=== PATIENT | female | born 1975 | race Caucasian/White ===

== ENCOUNTER → 2017-06-12 | Outpatient (CLI) | payer BC ==
--- NOTE | 2017-06-12 11:36 | WOMENS IMAGING REPORT ---
EXAM DESCRIPTION: BILAT SCREENING MAMMO W/CAD COMPLETED DATE/TIME: 06/12/2017 9:25 am REASON FOR STUDY: SCREENING MAMMO Z12.31 ENCNTR SCREEN MAMMOGRAM FOR MALIGNANT NEOPLASM OF [place] COMPARISON: None. TECHNIQUE: Standard craniocaudal and mediolateral oblique views of each breast recorded using digita l acquisition. LIMITATIONS: None. FINDINGS: No masses, calcifications or architectural distortion. No areas of suspicion. Read with the assistance of CAD. .[facility] - R2 Cenova Version 1.3 .[facility] - R2 Cenova Version 1.3 .[facility] - R2 Cenova Version 2.4 .[facility] - R2 Cenova Version 2.4 .[facility] - R2 [employer] Version 9.2 IMPRESSION: NORMAL MAMMOGRAM. BIRADS 1. BREAST DENSITY: b. There are scattered areas of fibroglandular density. BIRAD: 1 NEGATIVE RECOMMENDATION: ROUTINE SCREENING COMMENT: The patient has been notified of the results by letter per SA requirements. Additional no tification policies are in place for contacting patient with suspicious or incomplete findings. Quality ID #225: The [employer] recommends an annual screening mammogram for women aged 40 years or over. This facility utilizes a reminder system to ensure that all patients receive reminder letters, and/or direct phone calls for appointments. This includes reminders for routine scr eening mammograms, diagnostic mammograms, or other Breast Imaging Interventions when appropriate. Th is patient will be placed in the appropriate reminder system. The [employer] (ACR) has developed recommendations for screening MRI of the breast s in certain patient populations, to be used in conjunction with mammography. Breast MRI surveillanc e may be appropriate for women with more than 20% lifetime risk of developing breast cancer as deter mined by genetic testing, significant family history of the disease, or history of mantle radiation f or Hodgkins Disease. ACR Practice Guidelines 2008. TECHNICAL DOCUMENTATION: FINDING NUMBER: (1) ASSESSMENT: (1) JOB ID: [id number] [employer]- All Rights Reserved
== END ==
LOC: WI 09:03
PROVIDERS: ATTEND Nurse Practitioner Family
DX: Z12.31 Encounter for screening mammogram for malignant neoplasm of breast (principal)
CPT/HCPCS: 77067

== ENCOUNTER → 2017-06-12 | Outpatient (CLI) | payer BC ==
[2017-06-12 09:54] LABS: ABSOLUTE BASOPHILS # (AUTO) 0.2 10^3/uL (0.0-0.2); ABSOLUTE EOSINOPHILS # (AUTO) 0.4 10^3/uL (0.0-0.6); ABSOLUTE LYMPHOCYTES (AUTO) 2.4 10^3/uL (0.5-4.7); ABSOLUTE MONOCYTES (AUTO) 0.6 10^3/uL (0.1-1.4); ABSOLUTE NEUT (AUTO) 4.2 10^3/uL (1.7-8.2); EOSINOPHILS % (AUTO) 4.7 % (0-6); HEMATOCRIT 40.3 % (36.0-47.0); HEMOGLOBIN 13.5 g/dL (12.0-15.5); LYMPHOCYTES % (AUTO) 30.7 % (13-45); MEAN CORPUSCULAR HEMOGLOBIN 26.7 pg (27.0-33.4); MEAN CORPUSCULAR HGB CONC 33.4 g/dL (32.0-36.0); MEAN CORPUSCULAR VOLUME 80 fl (80-97); PLATELET COUNT 241 10^3/uL (150-450); RED BLOOD COUNT 5.04 10^6/uL (3.72-5.28); RED CELL DISTRIBUTION WIDTH 15.2 % (11.5-14.0); SEGMENTED NEUTROPHILS % (AUTO) 54.6 % (42-78); TOTAL CELLS COUNTED % (AUTO) 100 %; WHITE BLOOD COUNT 7.8 10^3/uL (4.0-10.5)
[2017-06-12 10:09] LABS: ALANINE AMINOTRANSFERASE 33 U/L (9-52); ALBUMIN 4.8 g/dL (3.5-5.0); ALKALINE PHOSPHATASE 43 U/L (38-126); ANION GAP 9 (5-19); ASPARTATE AMINO TRANSFERASE 28 U/L (14-36); BILIRUBIN,DIRECT 0.1 mg/dL (0.0-0.4); BILIRUBIN,TOTAL 0.5 mg/dL (0.2-1.3); BLOOD UREA NITROGEN 14 mg/dL (7-20); CALCIUM 9.9 mg/dL (8.4-10.2); CARBON DIOXIDE 29 mmol/L (22-30); CHLORIDE 104 mmol/L (98-107); GLUCOSE 90 mg/dL (75-110); POTASSIUM 4.1 mmol/L (3.6-5.0); SODIUM 142.3 mmol/L (137-145)
[2017-06-12 10:26] LABS: FREE T4 (FREE THYROXINE) 0.91 ng/dL (0.78-2.19)
[2017-06-13 07:16] LABS: TRIIODOTHYRONINE (T3) 55 ng/dL (71-180)
[2017-06-14 16:06] LABS: VITAMIN D 1,25 DIHYDROXY 36.2 pg/mL (19.9-79.3)
== END ==
LOC: LAB 09:24
PROVIDERS: ATTEND Nurse Practitioner Family
DX: D64.9 Anemia, unspecified (principal); E03.9 Hypothyroidism, unspecified; Z68.33 Body mass index [BMI] 33.0-33.9, adult
CPT/HCPCS: 36415; 80053; 82607; 82652; 82728; 82746; 84439; 84443; 84480; 85025

== ENCOUNTER → 2017-08-14 | Outpatient (CLI) | payer BC ==
[2017-08-14 15:47] LABS: FREE T4 (FREE THYROXINE) 0.78 ng/dL (0.78-2.19)
[2017-08-14 16:01] LABS: THYROID STIMULATING HORMONE 74.9 uIU/mL (0.47-4.68)
[2017-08-15 09:30] LABS: TRIIODOTHYRONINE (T3) 63 ng/dL (71-180)
== END ==
LOC: LAB 14:46
PROVIDERS: ATTEND Nurse Practitioner Family
DX: E03.9 Hypothyroidism, unspecified (principal)
CPT/HCPCS: 36415; 84439; 84443; 84480

== ENCOUNTER → 2019-02-12 | Outpatient (CLI) | payer BC ==
--- NOTE | 2019-02-12 16:10 | WOMENS IMAGING REPORT ---
EXAM DESCRIPTION: BILAT SCREENING MAMMO W/CAD COMPLETED DATE/TIME: 02/12/2019 9:07 am REASON FOR STUDY: Z12.31 SCREENING MAMMO Z12.31 ENCNTR SCREEN MAMMOGRAM FOR MALIGNANT NEOPLASM OF B RE COMPARISON: 2017 EXAM PARAMETERS: Standard craniocaudal and mediolateral oblique views of each breast recorded using digital acquisition. Read with the assistance of CAD. .[facility] - [place] Artist [employer]pect Version 9.2 LIMITATIONS: None. FINDINGS: No suspicious masses, suspicious calcifications or architectural distortion. No areas of c oncern. IMPRESSION: Negative MAMMOGRAM. BIRADS 1 BREAST DENSITY: c. The breasts are heterogeneously dense, which may obscure small masses. BIRAD: ASSESSMENT: 1 NEGATIVE RECOMMENDATION: ROUTINE SCREENING Please continue yearly bilateral screening mammography/tomosynthesis in February 2020 COMMENT: The patient has been notified of the results by letter per SA requirements. Additional no tification policies are in place for contacting patient with suspicious or incomplete findings. Quality ID #[id number]: The [employer] recommends an annual screening mammogram for women aged 40 years or over. This facility utilizes a reminder system to ensure that all patients receive reminder letters, and/or direct phone calls for appointments. This includes reminders for routine scr eening mammograms, diagnostic mammograms, or other Breast Imaging Interventions when appropriate. Th is patient will be placed in the appropriate reminder system. TECHNICAL DOCUMENTATION: FINDING NUMBER: (1) ASSESSMENT: (1) JOB ID: [id number] [employer]- All Rights Reserved Reading location - IP/workstation name: [email or web address]
== END ==
LOC: WI 08:00
PROVIDERS: ATTEND Nurse Practitioner Family
DX: Z12.31 Encounter for screening mammogram for malignant neoplasm of breast (principal)
CPT/HCPCS: 77067

== ENCOUNTER 2019-05-29 06:39 | Inpatient (IN) | payer BC ==
[2019-05-21 10:59] LABS: HEMATOCRIT 36.1 % (36.0-47.0); HEMOGLOBIN 12.1 g/dL (12.0-15.5); MEAN CORPUSCULAR HEMOGLOBIN 23.7 pg (27.0-33.4); MEAN CORPUSCULAR HGB CONC 33.5 g/dL (32.0-36.0); MEAN CORPUSCULAR VOLUME 71 fl (80-97); PLATELET COUNT 230 10^3/uL (150-450); RED CELL DISTRIBUTION WIDTH 17.3 % (11.5-14.0); WHITE BLOOD COUNT 7.2 10^3/uL (4.0-10.5)
[2019-05-21 11:22] LABS: APPEARANCE,URINE CLEAR; BILIRUBIN,URINE NEGATIVE (NEGATIVE); COLOR,URINE YELLOW; GLUCOSE, URINE NEGATIVE (NEGATIVE); KETONES,URINE NEGATIVE (NEGATIVE); LEUKOCYTE ESTERASE,URINE NEGATIVE (NEGATIVE); NITRITE,URINE NEGATIVE (NEGATIVE); PROTEIN,URINE NEGATIVE (NEGATIVE); URINE SPECIFIC GRAVITY 1.014; UROBILINOGEN,URINE NEGATIVE mg/dL (<2.0)
[2019-05-21 11:25] LABS: ALBUMIN 4.7 g/dL (3.5-5.0); ALKALINE PHOSPHATASE 61 U/L (38-126); ANION GAP 13 (5-19); ASPARTATE AMINO TRANSFERASE 26 U/L (14-36); BILIRUBIN,DIRECT 0.3 mg/dL (0.0-0.4); BILIRUBIN,TOTAL 0.5 mg/dL (0.2-1.3); BLOOD UREA NITROGEN 14 mg/dL (7-20); CALCIUM 9.6 mg/dL (8.4-10.2); CARBON DIOXIDE 24 mmol/L (22-30); CHLORIDE 105 mmol/L (98-107); GLUCOSE 85 mg/dL (75-110); POTASSIUM 3.8 mmol/L (3.6-5.0); TOTAL PROTEIN 8.3 g/dL (6.3-8.2)
[~2019-05-29 06:39] MED LIST: CEFAZOLIN SODIUM 2 GM in DEXTROSE 5%-WATER 100 ML IV PRN; LACTATED RINGERS 1000 ML IV PRN; LIDOCAINE 0.5% INJ-PF (5 MG/ML) 50 ML SDV SUBCUT PRN
[2019-05-29] MEDS ORDERED: BUPIVACAINE HCL 0.25 % INJ/PF (2.5 MG/1 ML) 30 ML VIAL ONE (08:24)
[2019-05-29] MEDS ORDERED: PROPOFOL INJ 200 MG/20 ML VIAL IV ONE (08:27)
[2019-05-29] MEDS ORDERED: MIDAZOLAM 2 MG/2 ML INJ ONE (08:27)
[2019-05-29] MEDS ORDERED: HYDROMORPHONE HCL INJ/PF 2 MG/ML AMPULE ONE (08:27)
[2019-05-29] MEDS ORDERED: DIPHENHYDRAMINE HCL 50 MG/ML VIAL IV PRN (09:27)
[2019-05-29] MEDS ORDERED: ONDANSETRON HCL INJ/PF 4 MG/2 ML SDV IV PRN (09:27)
[2019-05-29] MEDS ORDERED: FENTANYL CITRATE INJ/PF 100 MCG/2 ML AMPUL IV PRN ×2 (09:27)
[2019-05-29] MEDS ORDERED: PROMETHAZINE HCL INJ 25 MG/1 ML VIAL IV PRN ×3 (09:27→14:48)
[2019-05-29] MEDS ORDERED: MEPERIDINE HCL/PF INJ 25 MG/1 ML DISP.SYRIN IV PRN (09:27)
[2019-05-29] MEDS ORDERED: OXYCODONE-ACETAMINOPHEN 5-325 MG TABLET PO PRN ×2 (09:27)
[2019-05-29] MEDS ORDERED: BUPIVACAINE HCL 0.25 % INJ/PF (2.5 MG/1 ML) 30 ML VIAL INJ ONE (09:38)
--- NOTE | 2019-05-29 12:03 | Operative Report ---
Operative Report DATE OF SURGERY: 05/29/19 PREOPERATIVE DIAGNOSIS: Pelvic mass right adnexal mass POSTOPERATIVE DIAGNOSIS: Bilateral endometriomas adhesions and pelvic pain OPERATION: Laparoscopy with conversion to open laparotomy total hysterectomy and BSO SURGEON: DAV VARGAS [employer] ATTENDANT: OSVALDO FRANCO ANESTHESIA: GA TISSUE REMOVED OR ALTERED: Uterus tubes and ovaries ESTIMATED BLOOD LOSS: Approximately 400 cc INTRAOPERATIVE FINDINGS: Bilateral endometriomas with extensive pelvic adhesions PROCEDURE: Patient placed in a dorsal lithotomy tissue prepped dural sterile fashion. Speculum placed cervix visualized grasped with single-tooth tenaculum Hulka tenaculum was placed single-tooth tenaculum was removed. Then turned to the abdomen where a subumbilical incision was made trocar was introduced with insufflation of the abdomen and puncture was made lateral to the first on the le ft and a 5 trocar was introduced and a suprapubic incision and a 1012 trocar was placed. The harmonic scalpel the right infundibulopelvic then divided and divided this was continued down to where adhesions were encountered from the ovary to the right adnexal wall. On the left and the tube was severed from the mesosalpinx using harmonic scalpel. At that point it was determined that the ovary was adhered to read here to the posterior aspect of the uterus and if the uterus or to be removed ovary would also have to be removed secondary to the adhesions and endometrioma. Cul-de-sac did not appear to be obliterated and bowel was within millimeters of the posterior aspect of the uterus and it was noted intraoperatively to convert to open laparotomy. Pfannenstiel incision was made extending through the subcutaneous tissue with sharp dissection fascia divided rectus muscle bluntly sharp divided prior to the peritoneum was entered with sharp dissection. Bowel was packed with with saline packs there was adhesions of the bowel to the left adnexa wall. The O'Bradley-O'Hinkle retractor was placed. The uterus was grasped with a thyroid clamp and on the left a straight clamp was applied to the broad ligament and divided this continued down both sides of the uterus. Bladder flap was created with blunt sharp dissection. Was then crossclamped and the uterus was removed. Left ovary was then carefully dissected and the remaining tissue that was adherent was divided and that ovary was removed. On the right the remaining ovary was removed by sharply dissecting the adhesions surrounding it until it could be safely removed. FloSeal was then placed over the raw areas covered over with Gelfoam and then Surgicel and Interceed. Stasis was noted. The retractor was removed and the wet saline packs were removed. The incision closed with 0 Vicryl for the fascia the subcu tissue was closed interrupted 2-0 Vicryl and the skin was closed with insorb.. Previously made subumbilical incision was closed with 0 Vicryl for the fascia 4 oh subcu the puncture wound left was closed with subcu 040. The patient's urine remained clear after procedure she was taken recovery room in good condition
[2019-05-29] MEDS ORDERED: PROMETHAZINE HCL INJ 25 MG/1 ML VIAL ONE (12:16)
[2019-05-29] MEDS ORDERED: FENTANYL CITRATE INJ/PF 100 MCG/2 ML AMPUL ONE (12:17)
[2019-05-29] MEDS: FENTANYL CITRATE INJ/PF 100 MCG/2 ML AMPUL IV PRN ×2 (12:17→12:27)
[2019-05-29] MEDS ORDERED: DEXTROSE 5%-LACTATED RINGERS 1,000 ML IV PRN (13:07)
[2019-05-29] MEDS ORDERED: MORPHINE SULFATE 10 MG/ML INJ IV PRN (13:08)
[2019-05-29] MEDS: OXYCODONE-ACETAMINOPHEN 5-325 MG TABLET PO PRN ×2 (14:14→20:25)
[2019-05-29] MEDS ORDERED: ONDANSETRON HCL INJ/PF 4 MG/2 ML SDV ONE (14:16)
[2019-05-29] MEDS ORDERED: KETOROLAC TROMETHAMINE 60 MG/2 ML SDV ONE (14:16)
[2019-05-29] MEDS ORDERED: METOCLOPRAMIDE HCL INJ/PF 10 MG/2 ML SDV ONE (14:16)
[2019-05-29] MEDS ORDERED: GLYCOPYRROLATE 1 MG/5 ML VIAL ONE (14:16)
[2019-05-29] MEDS ORDERED: ROCURONIUM BROMIDE INJ 50 MG/5 ML VIAL IV ONE (14:16)
[2019-05-29] MEDS ORDERED: NEOSTIGMINE METHYLSULFATE 10 MG/10 ML VIAL ONE (14:16)
[2019-05-29] MEDS ORDERED: DEXAMETHASONE SOD PHOSPHATE INJ 4 MG/1 ML VIAL ONE (14:16)
[2019-05-29] MEDS ORDERED: LIDOCAINE 2% INJ-PF (20 MG/ML) 2 ML AMPUL ONE (14:16)
[2019-05-29] MEDS: IBUPROFEN 800 MG TABLET PO SCH ×2 (14:19→23:21)
[2019-05-29] MEDS ORDERED: MORPHINE SULFATE 10 MG/ML INJ IM PRN (22:15)
[2019-05-30 05:14] LABS: HEMOGLOBIN 8.3 g/dL (12.0-15.5); MEAN CORPUSCULAR HEMOGLOBIN 23.7 pg (27.0-33.4); MEAN CORPUSCULAR HGB CONC 33.2 g/dL (32.0-36.0); MEAN CORPUSCULAR VOLUME 72 fl (80-97); PLATELET COUNT 225 10^3/uL (150-450); RED CELL DISTRIBUTION WIDTH 17.2 % (11.5-14.0); WHITE BLOOD COUNT 11.6 10^3/uL (4.0-10.5)
[2019-05-30] MEDS: IBUPROFEN 800 MG TABLET PO SCH ×3 (05:19→23:14)
--- NOTE | 2019-05-30 07:19 | PDOC PROGRESS REPORT ---
Subjective Progress Note for:: 05/30/19 Subjective:: pt having some right sided pain Reason For Visit: N94.10 UNSPECIFIED DYSPAREUNIA Physical Exam - Physical Exam Vital Signs: Temp Pulse Resp BP Pulse Ox 98.5 F 88 18 128/63 H 96 05/30/19 03:29 05/30/19 04:20 05/30/19 03:29 05/30/19 03:29 05/30/19 04:20 Intake & Output 05/29/19 05/30/19 05/31/19 06:59 06:59 06:59 Intake Total 0 1900 Output Total 1720 Balance 0 180 Weight 91.17 kg 91 kg General appearance: PRESENT: no acute distress Respiratory exam: PRESENT: clear to auscultation dee Cardiovascular exam: PRESENT: RRR GI/Abdominal exam: PRESENT: other - insicion clean Result Laboratory Results: 05/30/19 04:52 05/21/19 10:33 05/30/19 04:52 WBC 11.6 H RBC 3.50 L Hgb 8.3 L Hct 25.0 L MCV 72 L MCH 23.7 L MCHC 33.2 RDW 17.2 H Plt Count 225 Assessment & Plan - Diagnosis (2) Endometrioma of ovary Is this a current diagnosis for this admission?: Yes - Time Time Spent with patient: Less than 15 minutes Medications reviewed and adjusted accordingly: Yes Anticipated discharge: Home Within: within 24 hours - Plan Summary Plan Summary: routine post op care
[2019-05-30] MEDS: ESTROGENS,CONJUGATED 1.25 MG TABLET PO SCH (09:04)
[2019-05-30] MEDS ORDERED: HYDROMORPHONE HCL 2 MG TABLET ONE (09:15)
[2019-05-30] MEDS: HYDROMORPHONE HCL 2 MG TABLET PO PRN ×3 (09:24→23:14)
[2019-05-30] MEDS ORDERED: SIMETHICONE 80 MG TAB.CHEW PO PRN (20:28)
[2019-05-31] MEDS: IBUPROFEN 800 MG TABLET PO SCH (05:58)
[2019-05-31] MEDS: HYDROMORPHONE HCL 2 MG TABLET PO PRN (05:58)
[2019-05-31 08:26] VITALS: BP 130/56
--- NOTE | 2019-05-31 08:55 | Discharge Summary ---
Discharge Summary (SDC) - Discharge Final Diagnosis: pelvic pain bilateral endometrioma Date of Surgery: 05/29/19 Condition: Good Treatment or Instructions: post ANTHONY BS&O Referrals: SHANELLE ENGLISH FNP-C [Primary Care Provider] - Respiratory Treatments at Home: Deep Breathing/Coughing Discharge Activity: Activity As Tolerated, Balance Activity w/Rest, No Lifting/P ush/Pulling, Pelvic Rest, Slowly Increase Activity, No tub bath, Walk Frequently Home Care Assistance: None Needed Report the Following to Your Physician Immediately: Shortness of Breath, Increase in Pain, Fever over 101 Degrees, Unusual Bleeding, Redness, Swelling, Warmth, Increased Soreness, Drainage-Foul Smelling, IV Site Infection Signs, Urinary Infection Signs
[2019-05-31] MEDS: ESTROGENS,CONJUGATED 1.25 MG TABLET PO SCH (09:43)
== END 2019-05-31 10:07 | disposition home or self-care (01) | DRG 743 ==
LOC: OROUT 06:39 → 2N 12:32 → OROUT 14:11 → 2N 14:11
PROVIDERS: ADMIT Obstetrics & Gynecology Gynecology; ATTEND Obstetrics & Gynecology Gynecology
PROC: 0UT70ZZ Resection of Bilateral Fallopian Tubes, Open Approach (ICD-10-PCS; 2019-05-29)
PROC: 0UPDXHZ Removal of Contraceptive Device from Uterus and Cervix, External Approach (ICD-10-PCS; 2019-05-29)
PROC: 0UT90ZZ Resection of Uterus, Open Approach (ICD-10-PCS; principal; 2019-05-29 08:45)
PROC: 0UT20ZZ Resection of Bilateral Ovaries, Open Approach (ICD-10-PCS; 2019-05-29 08:45)
DX: N94.10 Unspecified dyspareunia (principal); N80.1 Endometriosis of ovary; N73.6 Female pelvic peritoneal adhesions (postinfective); F17.200 Nicotine dependence, unspecified, uncomplicated; E03.9 Hypothyroidism, unspecified; Z82.49 Family history of ischemic heart disease and other diseases of the circulatory system; Z79.899 Other long term (current) drug therapy; Z88.0 Allergy status to penicillin; Z53.31 Laparoscopic surgical procedure converted to open procedure; Z83.3 Family history of diabetes mellitus; Z91.013 Allergy to seafood
CPT/HCPCS: 36415; 80053; 81001; 81025; 840; 85027; 88307; 94799; J0690; J1100; J1170; J1885; J2250; J2270; J2405; J2550; J2704; J2710; J2765; J3010; J3490; J7060; J7120

== ENCOUNTER 2019-06-03 19:06 | Emergency (ER) | payer BC ==
--- NOTE | 2019-06-03 19:57 | ER Document Report ---
ED Medical Screen (RME) - General Chief Complaint: Nausea/Vomiting Stated Complaint: BODY PAIN,NAUSEA,VOMITING Time Seen by Provider: 06/03/19 19:51 Primary Care Provider: SHANELLE ENGLISH FNP-C [Primary Care Provider] - Follow up as needed Mode of Arrival: Wheelchair Information source: Patient Notes: 44-year-old female presented to ED for complaint of pain all over. She had a hysterectomy Monday and today when she had a bowel movement a small place on her incision opened up and it has been bleeding since then. Patient denies any fevers. She is hurting all over. She states she has been walking and moving around as she has been told to. She states she took Dilaudid 2 milligrams at 3:30 AM and at noon she took Motrin. She states that the Dilaudid had her so constipated that she does not ever want to take that again. She states the body aches have been since her surgery 29 May. The leg pain got worse yesterday and the upper body got worse today. Patient is alert oriented respirations regular nonlabored speaking in full sentences. She states Dr. Lawson did her surgery. I have greeted and performed a rapid initial assessment of this patient. A comprehensive ED assessment and evaluation of the patient, analysis of test results and completion of medical decision making process will be conducted by an additional ED providers. TRAVEL OUTSIDE OF THE [place] IN LAST 30 DAYS: No - Related Data Allergies/Adverse Reactions: Shellfish * [Shellfish] Allergy (Verified 05/29/19 07:14) Anaphylactoid, swelling, emesis Penicillins Adverse Reaction (Intermediate, Verified 05/29/19 07:14) vomiting, rash Past Medical History - Past Medical History Cardiac Medical History: Denies: Hx Coronary Artery Disease, Hx Heart Attack, Hx Hypertension Pulmonary Medical History: Reports: Hx Asthma, Hx Bronchitis Denies: Hx COPD, Hx Pneumonia Neurological Medical History: Denies: Hx Cerebrovascular Accident, Hx Seizures Musculoskeltal Medical History: Denies Hx Arthritis Past Surgical History: Reports: Hx Thyroid Surgery - 04 removal - Immunizations Hx Diphtheria, Pertussis, Tetanus Vaccination: - Unsure Physical Exam - Vital signs Vitals: Temp Pulse Resp BP Pulse Ox 98.7 F 84 20 125/57 L 100 06/03/19 19:39 06/03/19 19:39 06/03/19 19:39 06/03/19 19:39 06/03/19 19:39 Course - Vital Signs Vital signs: Temp Pulse Resp BP Pulse Ox 98.7 F 84 20 125/57 L 100 06/03/19 19:39 06/03/19 19:39 06/03/19 19:39 06/03/19 19:39 06/03/19 19:39 Doctor's Discharge - Discharge Referrals: SHANELLE ENGLISH, ATTRACTION WORKER-C [Primary Care Provider] - Follow up as needed
[2019-06-03] MEDS ORDERED: HYDROCODONE/ACETAMINOPHEN 5-325 MG TABLET PO ONE (19:58)
[2019-06-03 20:23] LABS: ABSOLUTE BASOPHILS # (AUTO) 0.1 10^3/uL (0.0-0.2); ABSOLUTE EOSINOPHILS # (AUTO) 0.2 10^3/uL (0.0-0.6); ABSOLUTE LYMPHOCYTES (AUTO) 2.4 10^3/uL (0.5-4.7); ABSOLUTE MONOCYTES (AUTO) 1.1 10^3/uL (0.1-1.4); ABSOLUTE NEUT (AUTO) 6.5 10^3/uL (1.7-8.2); BASOPHILS % (AUTO) 0.6 % (0-2); EOSINOPHILS % (AUTO) 2.1 % (0-6); HEMATOCRIT 23.6 % (36.0-47.0); LYMPHOCYTES % (AUTO) 22.9 % (13-45); MEAN CORPUSCULAR VOLUME 71 fl (80-97); MONOCYTES % (AUTO) 10.9 % (3-13); PLATELET COUNT 282 10^3/uL (150-450); RED BLOOD COUNT 3.35 10^6/uL (3.72-5.28); RED CELL DISTRIBUTION WIDTH 17.1 % (11.5-14.0); SEGMENTED NEUTROPHILS % (AUTO) 63.5 % (42-78); TOTAL CELLS COUNTED % (AUTO) 100 %; WHITE BLOOD COUNT 10.3 10^3/uL (4.0-10.5)
[2019-06-03 20:29] LABS: APPEARANCE,URINE CLEAR; BILIRUBIN,URINE NEGATIVE (NEGATIVE); COLOR,URINE YELLOW; GLUCOSE, URINE NEGATIVE (NEGATIVE); KETONES,URINE NEGATIVE (NEGATIVE); PROTEIN,URINE NEGATIVE (NEGATIVE); UROBILINOGEN,URINE NEGATIVE mg/dL (<2.0)
[2019-06-03 20:38] LABS: ALBUMIN 4.2 g/dL (3.5-5.0); ALKALINE PHOSPHATASE 63 U/L (38-126); ANION GAP 12 (5-19); ASPARTATE AMINO TRANSFERASE 25 U/L (14-36); BILIRUBIN,DIRECT 0.2 mg/dL (0.0-0.4); BILIRUBIN,TOTAL 0.8 mg/dL (0.2-1.3); BLOOD UREA NITROGEN 14 mg/dL (7-20); CALCIUM 9.5 mg/dL (8.4-10.2); CARBON DIOXIDE 24 mmol/L (22-30); CHLORIDE 101 mmol/L (98-107); GLUCOSE 105 mg/dL (75-110); POTASSIUM 3.6 mmol/L (3.6-5.0); TOTAL PROTEIN 7.5 g/dL (6.3-8.2)
[2019-06-03] MEDS ORDERED: HYDROMORPHONE HCL INJ/PF 2 MG/ML AMPULE IM ONE (22:24)
[2019-06-03] MEDS ORDERED: ONDANSETRON 4 MG TAB.RAPDIS PO ONE (22:26)
--- NOTE | 2019-06-03 22:26 | ER Document Report ---
ED General - General Chief Complaint: Pain All Over Stated Complaint: BODY PAIN,NAUSEA,VOMITING Time Seen by Provider: 06/03/19 19:51 Primary Care Provider: DAV LAWSON MD [ACTIVE STAFF] - Follow up tomorrow Mode of Arrival: Wheelchair Notes: Patient is a 44-year-old female that comes emergency department for chief complaint of bleeding from her postop wound. She had total hysterectomy pe rformed by Dr. Lawson on 05/29/2019, she states this was started as laparoscopic but converted to an open procedure. She states that she was discharged Monday, she has been doing well except that when she takes her pain medication she becomes extremely constipated, however when she does not take her pain medication she hurts everywhere. She states she had been taking stool softeners, finally had a very large bowel movement with a lot of straining and afterwards in the afternoon she noted she was bleeding from her wound site in her lower abdomen. She states this was bleeding heavily, blood through her close and through a towel, she states she called [facility] and they told her to come in to be evaluated. She states the bleeding stopped after she got on the bed in the room. She is not on any blood thinners. She was prescribed Dilaudid 2 mg and ibuprofen in addition to the stool softeners, denies other medications at this time. TRAVEL OUTSIDE OF THE [place] IN LAST 30 DAYS: No - Related Data Allergies/Adverse Reactions: Shellfish * [Shellfish] Allergy (Verified 05/29/19 07:14) Anaphylactoid, swelling, emesis Penicillins Adverse Reaction (Intermediate, Verified 05/29/19 07:14) vomiting, rash Home Medications: Synthroid. Zoloft Past Medical History - General Information source: Patient - Social History Smoking Status: Never Smoker Frequency of alcohol use: None Drug Abuse: None Lives with: Family Family History: Reviewed & Not Pertinent Patient has suicidal ideation: No Patient has homicidal ideation: No - Past Medical History Cardiac Medical History: Denies: Hx Coronary Artery Disease, Hx Heart Attack, Hx Hypertension Pulmonary Medical History: Reports: Hx Asthma, Hx Bronchitis Denies: Hx COPD, Hx Pneumonia Neurological Medical History: Denies: Hx Cerebrovascular Accident, Hx Seizures Musculoskeletal Medical History: Denies Hx Arthritis Past Surgical History: Reports: Hx Thyroid Surgery - 04 removal - Immunizations Immunizations up to date: Yes Hx Diphtheria, Pertussis, Tetanus Vaccination: Yes - Unsure Hx Pneumococcal Vaccination: 05/15/05 Review of Systems - Review of Systems Constitutional: See HPI EENT: No symptoms reported Cardiovascular: No symptoms reported Respiratory: No symptoms reported Gastrointestinal: See HPI Genitourinary: No symptoms reported Female Genitourinary: See HPI Musculoskeletal: No symptoms reported Skin: See HPI Hematologic/Lymphatic: No symptoms reported Neurological/Psychological: No symptoms reported Physical Exam - Vital signs Vitals: Temp Pulse Resp BP Pulse Ox 98.7 F 84 20 125/57 L 100 06/03/19 19:39 06/03/19 19:39 06/03/19 19:39 06/03/19 19:39 06/03/19 19:39 - Notes Notes: GENERAL: Alert, interacts well. No acute distress. HEAD: Normocephalic, atraumatic. EYES: Pupils equal, round, and reactive to light. Extraocular movements intact. ENT: Oral mucosa moist, tongue midline. Oropharynx unremarkable. Airway patent. LUNGS: Clear to auscultation bilaterally, no wheezes, rales, or rhonchi. No respiratory distress. HEART: Regular rate and rhythm. No murmur ABDOMEN: Postsurgical wounds over the left mid and mid upper abdomen without signs of infection. There is a large scar across the lower abdomen horizontally with some ecchymosis surrounding this. Just to the right of the midline at the scar there is a 1.5 cm area that has opened superficially and occasionally loses blood. There is no purulent drainage, no foul smell, no surrounding erythema, no concerning tenderness over the abdomen. GENITOURINARY: Deferred EXTREMITIES: Moves all 4 extremities spontaneously. No edema, normal radial and dorsalis pedis pulses bilaterally. No cyanosis. BACK: no cervical, thoracic, lumbar midline tenderness. No saddle anesthesia, normal distal neurovascular exam. Moves all extremities in full range of motion. NEUROLOGICAL: Alert and oriented x3. Normal speech. Cranial nerves II through XII grossly intact. PSYCH: Normal affect, normal mood. SKIN: Warm, dry, normal turgor. No rashes or lesions noted. Course - Re-evaluation Re-evalutation: The area that was previously bleeding over the right abdomen is still able to be opened by pulling apart the skin, there is minimal bleeding when I do this, this is very superficial, not even into the dermis. There is no dehiscence, no erythema, no purulent drainage, no notable tenderness to the area. Patient is actually very well-appearing, her vital signs are unremarkable, CBC shows anemia but this is not significantly changed from prior, no leukocytosis. Chemistry and remaining work-up unremarkable. Abdomen has some mild generalized tenderness but patient is only complaining of generalized pain over the body. She has not had any vomiting or fever. Very low suspicion of postoperative complication in the abdomen based on this, I did discuss with patient and she states she is just hoping for some way to be treated for her general pain and to help get the wound closed. She was given 1 mg of Dilaudid. 06/03/19 22:30 I called spoke with Dr. Zaldivar. Discussed patient details, history, laboratory work-up, and evaluation. Because the area is so superficial and is aligned without concerning dehiscence she recommends dressing or Dermabond over the area and for her to be rechecked by Dr. Lawson in the office in the morning. There are no other recommendations at this time. I discussed this at length with patient and I recommended she take half to quarter of her Dilaudid dose along with her stool softeners to avoid constipation but still have some pain control. She states that she cannot take Percocet because she becomes too itchy with this and she did not have good relief with the dose of hydrocodone from triage. She is very agreeable with this. Patient without any complaints and stable at time of discharge with plan to follow-up tomorrow. - Vital Signs Vital signs: Temp Pulse Resp BP Pulse Ox 99.0 F 77 18 115/52 L 97 06/04/19 00:21 06/04/19 00:21 06/04/19 00:21 06/04/19 00:21 06/04/19 00:21 - Laboratory Result Diagrams: 06/03/19 20:00 06/03/19 20:00 Laboratory results interpreted by me: 06/03/19 06/03/19 06/03/19 20:00 20:00 20:00 RBC 3.35 L Hgb 8.0 L Hct 23.6 L MCV 71 L MCH 24.0 L RDW 17.1 H Est GFR (MDRD) Non-Af 55 L Leukocyte Esterase Rfl TRACE H Procedures - Laceration/Wound Repair Right lower abdominal Wound length (cm): 1.5 Wound's Depth, Shape: Linear Laceration pre-procedure: Sterile PPE donned, Sterile drapes applied, Shur-Clens applied Wound explored: Clean, No foreign body removed Wound Repaired With: Dermabond Post-procedure NV exam normal: Yes Complications: No Discharge - Discharge Clinical Impression: Bleeding from wound, Post-op pain Condition: Stable Disposition: HOME, SELF-CARE Additional Instructions: I spoke with Dr. Zne potter. Recommendation was to perform Dermabond over the small area of bleeding and to be rechecked by Dr. Lawson in the office tomorrow. Consider taking 1/2-1/4 of your Dilaudid along with your stool soften ers to treat pain but also reduce constipation. Return if you worsen including vomiting, fever, developing or spreading redness, severe bleeding, or any other concerning or worsening symptoms. Referrals: DAV LAWSON MD [ACTIVE STAFF] - Follow up tomorrow
[2019-06-04 00:36] VITALS: BP 115/52
== END 2019-06-04 00:23 | disposition home or self-care (01) ==
LOC: ER 19:06
DX: L76.22 Postprocedural hemorrhage of skin and subcutaneous tissue following other procedure (principal); M79.10 Myalgia, unspecified site; R11.2 Nausea with vomiting, unspecified; Z90.710 Acquired absence of both cervix and uterus; Z88.0 Allergy status to penicillin; Z91.013 Allergy to seafood
CPT/HCPCS: 99283; 96372; 36415; 87086; 85025; 87088; 80053; 81001; 87186; 12001; S0119; J1170

== ENCOUNTER 2019-11-17 21:47 | Emergency (ER) | payer BC ==
--- NOTE | 2019-11-17 23:20 | ER Document Report ---
ED Medical Screen (RME) - General Chief Complaint: Chest Pain Stated Complaint: CHEST PAIN Time Seen by Provider: 11/17/19 23:17 Primary Care Provider: SHANELLE ENGLISH FNP-C [Primary Care Provider] - Follow up as needed Notes: HPI: 44-year-old female who is on hormone replacement therapy presenting for shortness of breath and chest pain. Patient states 3 weeks ago while in [place] she developed some swelling and discomfort in the posterior throat, was placed on Zithromax at that time. Patient states symptoms did improve but about a week ago she began having increasing shortness of breath she states she has an asthma history but has not heard herself wheezing. Initially she used an inhaler with some relief but now it is not helping at all. Patient states that she did have a COVID-19 test at [facility] last does not have a result. Patient has not had a fever. Patient feels like she cannot catch a deep breath. Patient complains of pressure discomfort in the left chest with radiation into the left shoulder and arm tonight which concerned her enough to bring her to the emergency department. She does state that she is on oral clindamycin and steroids from her PCP for upper respiratory symptoms PHYSICAL EXAMINATION: Patient very mildly dyspneic lung sounds are clear to auscultation without any active wheezing noted. Discussed with Elizabeth MAURER regarding placement given nonresulted Covid test I have greeted and performed a rapid initial assessment of this patient. A comprehensive ED assessment and evaluation of the patient, analysis of test results and completion of medical decision making process will be conducted by an additional ED providers. TRAVEL OUTSIDE OF THE [place] IN LAST 30 DAYS: No - Related Data Allergies/Adverse Reactions: Shellfish * [Shellfish] Allergy (Verified 05/29/19 07:14) Anaphylactoid, swelling, emesis Penicillins Adverse Reaction (Intermediate, Verified 05/29/19 07:14) vomiting, rash Past Medical History - Past Medical History Cardiac Medical History: Denies: Hx Coronary Artery Disease, Hx Heart Attack, Hx Hypertension Pulmonary Medical History: Reports: Hx Asthma, Hx Bronchitis Denies: Hx COPD, Hx Pneumonia Neurological Medical History: Denies: Hx Cerebrovascular Accident, Hx Seizures Musculoskeltal Medical History: Denies Hx Arthritis Past Surgical History: Reports: Hx Hysterectomy - 05/29/2019, Hx Thyroid Surgery - 04 removal - Immunizations Immunizations up to date: Yes Hx Diphtheria, Pertussis, Tetanus Vaccination: Yes - Unsure Physical Exam - Vital signs Vitals: Temp Pulse BP Pulse Ox 98.6 F 75 140/85 H 100 11/17/19 21:56 11/17/19 21:56 11/17/19 21:56 11/17/19 21:56 Course - Vital Signs Vital signs: Temp Pulse Resp BP Pulse Ox 98.6 F 75 140/85 H 100 11/17/19 21:56 11/17/19 21:56 11/17/19 21:56 11/17/19 21:56 Doctor's Discharge - Discharge Referrals: SHANELLE ENGLISH, FRANKI-C [Primary Care Provider] - Follow up as needed
[2019-11-17 23:43] LABS: ABSOLUTE BASOPHILS # (AUTO) 0.1 10^3/uL (0.0-0.2); ABSOLUTE EOSINOPHILS # (AUTO) 0.1 10^3/uL (0.0-0.6); ABSOLUTE LYMPHOCYTES (AUTO) 3.8 10^3/uL (0.5-4.7); ABSOLUTE MONOCYTES (AUTO) 1.2 10^3/uL (0.1-1.4); ABSOLUTE NEUT (AUTO) 7.4 10^3/uL (1.7-8.2); BASOPHILS % (AUTO) 0.8 % (0-2); EOSINOPHILS % (AUTO) 0.6 % (0-6); HEMATOCRIT 32.6 % (36.0-47.0); HEMOGLOBIN 10.6 g/dL (12.0-15.5); LYMPHOCYTES % (AUTO) 30.2 % (13-45); MEAN CORPUSCULAR HEMOGLOBIN 20.4 pg (27.0-33.4); MEAN CORPUSCULAR HGB CONC 32.7 g/dL (32.0-36.0); MONOCYTES % (AUTO) 9.7 % (3-13); PLATELET COUNT 296 10^3/uL (150-450); RED BLOOD COUNT 5.21 10^6/uL (3.72-5.28); RED CELL DISTRIBUTION WIDTH 20.9 % (11.5-14.0); SEGMENTED NEUTROPHILS % (AUTO) 58.7 % (42-78); TOTAL CELLS COUNTED % (AUTO) 100 %; WHITE BLOOD COUNT 12.6 10^3/uL (4.0-10.5)
[2019-11-17 23:48] LABS: MEAN CORPUSCULAR VOLUME 63 fl (80-97)
--- NOTE | 2019-11-17 23:54 | RADIOLOGY REPORT (SQ) ---
EXAM DESCRIPTION: X-RAY CHEST- One View CLINICAL HISTORY: Shortness of breath COMPARISON: None available TECHNIQUE: Single view of the chest. FINDINGS: There are no discrete air space infiltrates, pneumothoraces or pleural effusions. The pulmonary vascularity is normal. The cardiomediastinal silhouette is normal in size. No suspicious lytic or blastic osseous lesions are identified. IMPRESSION: There are no acute lung parenchymal findings.
[2019-11-18 00:01] LABS: ALBUMIN 4.6 g/dL (3.5-5.0); ALKALINE PHOSPHATASE 60 U/L (38-126); ANION GAP 11 (5-19); ASPARTATE AMINO TRANSFERASE 21 U/L (14-36); BILIRUBIN,TOTAL 0.3 mg/dL (0.2-1.3); BLOOD UREA NITROGEN 20 mg/dL (7-20); CARBON DIOXIDE 23 mmol/L (22-30); CHLORIDE 104 mmol/L (98-107); GLUCOSE 107 mg/dL (75-110); POTASSIUM 3.8 mmol/L (3.6-5.0); TOTAL PROTEIN 8.2 g/dL (6.3-8.2)
[2019-11-18 00:05] LABS: ANISOCYTOSIS 2+; HYPOCHROMASIA 1+; POLYCHROMASIA 1+
[2019-11-18 00:06] LABS: PLATELET COMMENT ADEQUATE
[2019-11-18 00:12] LABS: NT PRO BNP 42 pg/mL (<125)
[2019-11-18 00:21] LABS: TROPONIN I < 0.012 ng/mL
--- NOTE | 2019-11-18 01:07 | EKG REPORT ---
SEVERITY:- NORMAL ECG - SINUS RHYTHM : Confirmed by: Estefanía Becker MD 18-Nov-2019 01:05:45
[2019-11-18 01:53] LABS: APPEARANCE,URINE SLIGHTLY-CLOUDY; BILIRUBIN,URINE NEGATIVE (NEGATIVE); COLOR,URINE YELLOW; GLUCOSE, URINE NEGATIVE (NEGATIVE); KETONES,URINE NEGATIVE (NEGATIVE); LEUKOCYTE ESTERASE,URINE NEGATIVE (NEGATIVE); NITRITE,URINE NEGATIVE (NEGATIVE); PROTEIN,URINE NEGATIVE (NEGATIVE); URINE SPECIFIC GRAVITY 1.014; UROBILINOGEN,URINE NEGATIVE mg/dL (<2.0)
--- NOTE | 2019-11-18 03:55 | ER Document Report ---
ED General - General Chief Complaint: Chest Tightness Stated Complaint: CHEST PAIN Time Seen by Provider: 11/17/19 23:17 Primary Care Provider: AVIS SOLANO MD [ACTIVE STAFF] - Follow up as needed ALEJANDRA CHRISTIE MD [ACTIVE STAFF] - Follow up as needed TERI HEATON MD [COMMUNITY BASED STAFF] - Follow up as needed Notes: Patient is a 44-year-old female that comes emergency department for chief complaint of shortness of breath, tightness in her chest, ear pain especially on the right side, and resolving sore throat. She states she was seen starting 3 weeks ago in [place], diagnosed with uvulitis, placed on initially Zithromax, she was seen again, started on clindamycin and prednisone and she has taken a couple of doses of this. She states that after the prednisone the uvulitis actually finally resolved but she still has been developing increasing shortness of breath for most a week. She denies lower extremity swelling, she is a former smoker, she is currently on hormone replacement therapy. She denies history of blood clot. She denies fever. She does report significant improvement in her symptoms with inhaler intermittently but this evening it did not seem to help. She does have a history of asthma and currently only has an inhaler. Patient was tested for COVID-19 approximately 4 days ago and is still pending the results. TRAVEL OUTSIDE OF THE [place] IN LAST 30 DAYS: No - Related Data Allergies/Adverse Reactions: Shellfish * [Shellfish] Allergy (Verified 05/29/19 07:14) Anaphylactoid, swelling, emesis Penicillins Adverse Reaction (Intermediate, Verified 05/29/19 07:14) vomiting, rash Home Medications: albuterol, synthroid, premerin, zoloft. Past Medical History - Social History Smoking Status: Never Smoker Chew tobacco use (# tins/day): No Frequency of alcohol use: Social Drug Abuse: None Family History: Reviewed & Not Pertinent Patient has homicidal ideation: No - Past Medical History Cardiac Medical History: Denies: Hx Coronary Artery Disease, Hx Heart Attack, Hx Hypertension Pulmonary Medical History: Reports: Hx Asthma, Hx Bronchitis Denies: Hx COPD, Hx Pneumonia Neurological Medical History: Denies: Hx Cerebrovascular Accident, Hx Seizures Musculoskeletal Medical History: Denies Hx Arthritis Past Surgical History: Reports: Hx Hysterectomy - 05/29/2019, Hx Thyroid Surgery - 04 removal - Immunizations Immunizations up to date: Yes Hx Diphtheria, Pertussis, Tetanus Vaccination: Yes - Unsure Hx Pneumococcal Vaccination: 05/15/05 Review of Systems - Review of Systems Constitutional: See HPI EENT: See HPI Cardiovascular: No symptoms reported Respiratory: See HPI Gastrointestinal: No symptoms reported Genitourinary: No symptoms reported Female Genitourinary: No symptoms reported Musculoskeletal: No symptoms reported Skin: No symptoms reported Hematologic/Lymphatic: No symptoms reported Neurological/Psychological: No symptoms reported Physical Exam - Vital signs Vitals: Temp Pulse BP Pulse Ox 98.6 F 75 140/85 H 100 11/17/19 21:56 11/17/19 21:56 11/17/19 21:56 11/17/19 21:56 - Notes Notes: GENERAL: Alert, interacts well. No acute distress. HEAD: Normocephalic, atraumatic. EYES: Pupils equal, round, and reactive to light. Extraocular movements intact. ENT: Oral mucosa moist, tongue midline. Oropharynx unremarkable. Airway patent. Nares patent, sinuses non-tender, ear canals unremarkable, right-sided otitis media with bulging tympanic membrane and erythema. NECK: Full range of motion. Supple. Trachea midline. No lymphadenopathy. LUNGS: Occasional mild cough. Clear to auscultation bilaterally, no wheezes, rales, or rhonchi. No respiratory distress. Non-tender chest wall. HEART: Regular rate and rhythm. No murmur ABDOMEN: Soft, non-tender. Non-distended. EXTREMITIES: Moves all 4 extremities spontaneously. No edema, normal radial and dorsalis pedis pulses bilaterally. No cyanosis. BACK: no cervical, thoracic, lumbar midline tenderness. No saddle anesthesia, normal distal neurovascular exam. Moves all extremities in full range of motion. NEUROLOGICAL: Alert and oriented x3. Normal speech. Cranial nerves II through XII grossly intact. Strength 5/5 in all extremities. PSYCH: Normal affect, normal mood. SKIN: Warm, dry, normal turgor. No rashes or lesions noted. Course - Re-evaluation Re-evalutation: Patient with unremarkable oropharynx without evidence of uvulitis now, unremarkable submandibular area, however she does have right-sided otitis media. Vital signs unremarkable, lungs clear. I did review work-up from triage, this shows unremarkable CBC, chemistry, negative troponin. EKG unremarkable. D- dimer from triage is elevated. Patient is on hormone replacement therapy and has had recent travel. CTA will be performed. Discussed with patient in detail. CTA showing some pneumonia but no PE or concerning findings otherwise. I discussed with patient. She has already been on azithromycin and clindamycin, discussed pros and cons of Levaquin, elected for doxycycline instead for pneumonia. Patient should get her COVID results tomorrow as this could be viral pneumonia. Either way patient has no respiratory distress, hypoxia, and she is stable for discharge at this time. I discussed return precautions in detail. Patient states understanding and agreement with plan. Stable and well-appearing at time of discharge. - Vital Signs Vital signs: Temp Pulse Resp BP Pulse Ox 98.2 F 60 16 124/94 H 99 11/18/19 06:01 11/18/19 06:01 11/18/19 06:01 11/18/19 06:01 11/18/19 06:01 - Laboratory Result Diagrams: 11/17/19 23:23 11/17/19 23:23 Laboratory results interpreted by me: 11/17/19 11/17/19 11/18/19 23:23 23:23 01:28 WBC 12.6 H Hgb 10.6 L Hct 32.6 L MCV 63 L MCH 20.4 L RDW 20.9 H D-Dimer 0.74 H Urine Blood SMALL H - EKG Interpretation by Me Additional EKG results interpreted by me: EKG shows sinus rhythm at a rate of 79, QTc 427, CO interval 184. Normal axis. No T wave inversions or ST segment changes in consecutive leads Discharge - Discharge Clinical Impression: Shortness of breath, Chest tightness Otitis media Qualifiers: Otitis media type: suppurative Chronicity: acute Laterality: right Recurrence: non-recurrent Spontaneous tympanic membrane rupture: without spontaneous rupture Qualified Code(s): H66.001 - Acute suppurative otitis media without spontaneous rupture of ear drum, right ear Pneumonia Qualifiers: Pneumonia type: due to unspecified organism Laterality: bilateral Lung location: unspecified part of lung Qualified Code(s): J18.9 - Pneumonia, unspecified organism Condition: Stable Disposition: HOME, SELF-CARE Additional Instructions: Your evaluation and work-up today indicate a right-sided ear infection and a pneumonia. Take the doxycycline as directed, use the nasal spray as prescribed, continue Sudafed and current medications at home. Drink plenty of fluids and rest. Continue to use your inhaler and continue your prednisone. I recommend that you start taking an [id number] probiotic as well. Follow-up with primary care referral listed below. Return for any concerning or worsening symptoms including spiking fevers, severe worsening pain, difficulty breathing, or any other concerning symptoms. Prescriptions: Fluticasone Propionate [Flonase Nasal [place] 50 Mcg/[place] 16 gm] 2 sprays NASL Q12 #1 inhaler Doxycycline Hyclate [Vibramycin 100 mg Tablet] 100 mg PO BID 10 Days #20 tablet Referrals: AVIS SOLANO MD [ACTIVE STAFF] - Follow up as needed ALEJANDRA CHRISTIE MD [ACTIVE STAFF] - Follow up as needed TERI HEATON MD [COMMUNITY BASED STAFF] - Follow up as needed
--- NOTE | 2019-11-18 04:26 | RADIOLOGY REPORT (SQ) ---
EXAM DESCRIPTION: CT CHEST ANGIOGRAPHY WITHOUT THEN WITH IV CONTRAST COMPLETED DATE/TME: 11/18/2019 03:30 CLINICAL HISTORY: 44 years, Female, shortness of breath, + D-dimer, HRT COMPARISON: None TECHNIQUE: CT images of the chest were obtained after the administration of IV contrast. MPR and MIP reconstructions were performed. DLP 6:30 Images stored on PACS. All CT scanners at this facility use dose modulation, iterative reconstruction, and/or weight based dosing when appropriate to reduce radiation dose to as low as reasonably achievable (ALARA). [facility]: Dose Right [facility]: CareDose [facility]: Dose Right [facility]: Teradose 4D [facility]: [employer] LIMITATIONS: None. FINDINGS: No pulmonary embolism is detected to the segmental branches. The visualized portions of the thyroid gland are normal. The central airways are patent. Bovine arch is noted. No evidence of an aneurysm or dissection. The heart is normal in size. No evidence of a pericardial effusion. No mediastinal or hilar lymphadenopathy. There is a small area of groundglass opacity along the right lower lobe and along the inferior aspect of the right upper lobe along the minor fissure. The left lung is clear. There is no focal consolidation. There is no pneumothorax or pleural effusion. The bones are unremarkable. The visualized upper abdominal structures appear unremarkable. IMPRESSION: No CT evidence of acute pulmonary embolism. Two small areas of groundglass opacity within the right lung without consolidation. These areas likely represent pneumonia. Viral pneumonia is a consideration. TECHNICAL DOCUMENTATION: Quality ID # 436: Final reports with documentation of one or more dose reduction techniques (e.g., Automated exposure control, adjustment of the mA and/or kV according to patient size, use of iterative reconstruction technique) copyright 2011 [employer]- All Rights Reserved
[2019-11-18] MEDS ORDERED: DOXYCYCLINE HYCLATE 100 MG TABLET PO ONE (05:48)
[2019-11-18 06:04] VITALS: BP 124/94
[2019-11-18 13:09] LABS: PATH REVIEW PATHOLOGIST REVIEWED
== END 2019-11-18 06:04 | disposition home or self-care (01) ==
LOC: ER 21:47
DX: J18.9 Pneumonia, unspecified organism (principal); H66.001 Acute suppurative otitis media without spontaneous rupture of ear drum, right ear; R07.89 Other chest pain; R06.02 Shortness of breath; H92.01 Otalgia, right ear; J45.909 Unspecified asthma, uncomplicated; E89.0 Postprocedural hypothyroidism; Z79.899 Other long term (current) drug therapy; Z87.891 Personal history of nicotine dependence; Z91.013 Allergy to seafood; Z88.0 Allergy status to penicillin
CPT/HCPCS: 36415; 71045; 71275; 80053; 81001; 83880; 84484; 85025; 85379; 93005; 93010; 99284

== ENCOUNTER → 2020-02-06 | Outpatient (CLI) | payer BC ==
--- NOTE | 2020-02-06 12:25 | RADIOLOGY REPORT (SQ) ---
EXAM DESCRIPTION: CHEST PA/LATERAL IMAGES COMPLETED DATE/TIME: 02/06/2020 10:10 am REASON FOR STUDY: COUGH COMPARISON: 11/18/2019 EXAM PARAMETERS: NUMBER OF VIEWS: two views TECHNIQUE: Digital Frontal and Lateral radiographic views of the chest acquired. RADIATION DOSE: NA LIMITATIONS: none FINDINGS: LUNGS AND PLEURA: No opacities, masses or pneumothorax. No pleural effusion. MEDIASTINUM AND HILAR STRUCTURES: No masses or contour abnormalities. HEART AND VASCULAR STRUCTURES: Heart normal size. No evidence for failure. BONES: No acute findings. HARDWARE: None in the chest. OTHER: No other significant finding. IMPRESSION: NO SIGNIFICANT RADIOGRAPHIC FINDING IN THE CHEST. TECHNICAL DOCUMENTATION: JOB ID: [id number] 2010 [employer]- All Rights Reserved Reading location - IP/workstation name: [email or web address]
== END ==
LOC: OD 09:55
PROVIDERS: ATTEND Nurse Practitioner Acute Care
DX: R05 Cough (principal)
CPT/HCPCS: 71046

== ENCOUNTER → 2020-03-03 | Outpatient (CLI) | payer BC ==
--- NOTE | 2020-03-03 09:20 | WOMENS IMAGING REPORT ---
EXAM DESCRIPTION: BILAT SCREENING MAMMO W/CAD IMAGES COMPLETED DATE/TIME: 03/03/2020 7:18 am REASON FOR STUDY: Z12.31 ENCNTR SCREEN MAMMOGRAM FOR MALIGNANT NEOPLASM OF BREAST Z12.31 ENCNTR SCR EEN MAMMOGRAM FOR MALIGNANT NEOPLASM OF [place] COMPARISON: Multiple since 2018 EXAM PARAMETERS: Standard craniocaudal and mediolateral oblique views of each breast recorded using digital acquisition. Read with the assistance of CAD. .[facility] - [employer] Coordinator Version 9.2 LIMITATIONS: None. FINDINGS: No suspicious masses, suspicious calcifications or architectural distortion. No areas of c oncern. IMPRESSION: NEGATIVE MAMMOGRAM. BIRADS 1 BREAST DENSITY: b. There are scattered areas of fibroglandular density. BIRAD: ASSESSMENT: 1 NEGATIVE RECOMMENDATION: ROUTINE SCREENING Please continue yearly bilateral screening mammography/tomosynthesis in February 2021 COMMENT: The patient has been notified of the results by letter per MQSA requirements. Additional no tification policies are in place for contacting patient with suspicious or incomplete findings. Quality ID #225: The [employer] recommends an annual screening mammogram for women aged 40 years or over. This facility utilizes a reminder system to ensure that all patients receive reminder letters, and/or direct phone calls for appointments. This includes reminders for routine scr eening mammograms, diagnostic mammograms, or other Breast Imaging Interventions when appropriate. Th is patient will be placed in the appropriate reminder system. TECHNICAL DOCUMENTATION: FINDING NUMBER: (1) ASSESSMENT: (1) JOB ID: [id number] 2010 [employer]- All Rights Reserved Reading location - IP/workstation name: [email or web address]
== END ==
LOC: WI 06:51
PROVIDERS: ATTEND Nurse Practitioner Family
DX: Z12.31 Encounter for screening mammogram for malignant neoplasm of breast (principal)
CPT/HCPCS: 77067

== ENCOUNTER → 2020-05-13 | Outpatient (CLI) | payer BC ==
--- NOTE | 2020-05-13 14:22 | RADIOLOGY REPORT (SQ) ---
EXAM DESCRIPTION: U/S RETROPERITON (RENAL/AORTA) IMAGES COMPLETED DATE/TIME: 05/13/2020 2:13 pm REASON FOR STUDY: (N28.9)DISORDER OF KIDNEY AND URETER, UNSPECIFIED N28.9 DISORDER OF KIDNEY AND UR ETER, UNSPECIFIED COMPARISON: CT dated 12/23/2012 TECHNIQUE: Dynamic and static grayscale images acquired of the kidneys and bladder and recorded on P ACS. Additional selected color Doppler and spectral images recorded. LIMITATIONS: None. FINDINGS: RIGHT KIDNEY: The right kidney measures 12.5 cm in length. Normal echogenicity. No so lid or suspicious masses. No hydronephrosis. No calcifications. LEFT KIDNEY: Normal size. Normal echogenicity. No solid or suspicious masses. No hydronephrosi s. Approximately 5 mm echogenic focus which could represent nonobstructing stone in the inferior po le. BLADDER: No masses. OTHER FINDINGS: No other significant finding. IMPRESSION: Possible small nonobstructing stone in the inferior pole the left kidney. No other sign ificant findings. TECHNICAL DOCUMENTATION: JOB ID: [id number] [employer]- All Rights Reserved Reading location - IP/workstation name: [email or web address]
== END ==
LOC: RAD 13:52
PROVIDERS: ATTEND Nurse Practitioner Family
DX: N28.89 Other specified disorders of kidney and ureter (principal)
CPT/HCPCS: 76770